=== PATIENT | female | born 1985 | race Caucasian/White ===

== ENCOUNTER 2023-04-14 09:38 | Outpatient (OUT) | payer OTHER, SELFPAY ==
--- NOTE | 2023-04-14 09:45 | CT_ITS ---
The [address] [address] Patient Name: CEDRICK KUMARI MRN: [id number] date: 1985 Sex: F Assigned Patient Location: CT Current Patient Location: CT Accession/Order Number: [id number] Exam Date: 04/14/2023 10:16 Report Date: 04/14/2023 10:44 At the request of: RADHA CHUN Procedure: CT facial bones wo con EXAMINATION: CT facial bones wo con HISTORY: Dog Bite Of Face S01.85XA COMPARISON: No relevant comparison available. TECHNIQUE: Axial, Coronal, and Sagittal CT images created without IV contrast. Dose reduction techniques were achieved by using automated exposure control and/or adjustment of mA and/or kV according to patient size and/or use of iterative reconstruction technique. FINDINGS: FACIAL BONES: No bony lesion or fracture. SINUSES: No visible mass, significant fluid or mucosal thickening. NASAL FOSSA: No mass, fracture, or significant septal deviation. SKULL BASE: No mass or bone destruction. ORBITS: No visible mass, hematoma, edema or fracture. OTHER: Trace amount of subcutaneous edema or bruising within left cheek subcutaneous fat deep to skin surface marker localizing site of dog bite. IMPRESSION: 1. Mild subcutaneous edema or bruising at site of injury within left cheek subcutaneous fat. 2. No radiopaque foreign body. 3. No involvement of the underlying bone or musculature. Electronically authenticated by: CR BLANCAS Date: 04/14/2023 10:44
== END 2023-04-14 09:39 ==
LOC: CT 09:40
PROVIDERS: PCP Nurse Practitioner; Visit Provider Nurse Practitioner
DX: S01.85XA Open bite of other part of head, initial encounter (principal)
CPT/HCPCS: 70486

== ENCOUNTER 2023-08-30 13:27 | Outpatient (OUT) | payer OTHER, SELFPAY ==
[2023-08-30 13:57] LABS: SARS-CoV-2 Ag NEGATIVE (NEGATIVE)
[2023-08-30 15:27] LABS: SARS-CoV-2 NAA NOT DETECTED (NOT DETECTE)
== END 2023-08-30 13:28 | disposition home or self-care (01) ==
LOC: LAB 13:27
PROVIDERS: PCP Nurse Practitioner; Visit Provider Nurse Practitioner
DX: Z20.822 Contact with and (suspected) exposure to COVID-19 (principal)
CPT/HCPCS: 87635; 87811